=== PATIENT | female | born 1935 | race Caucasian/White ===

== ENCOUNTER 2024-11-27 14:24 | Emergency (ER) | payer BC ==
[2024-11-27 14:30] VITALS: BP 140/56; PULSE 80; RESP 18; TEMP 97.7; BMI 27.3
[2024-11-27] MEDS ORDERED: LIDOCAINE 5% TOPICAL PATCH TP ONE (14:52)
[2024-11-27] MEDS ORDERED: LIDOCAINE 5% TOPICAL PATCH ONE (15:27)
[2024-11-27] MEDS ORDERED: LIDOCAINE PATCH REMOVAL MC ONE (22:00)
== END 2024-11-27 15:30 | disposition home or self-care (01) ==
LOC: JER 14:24
DX: M25.562 Pain in left knee (principal)
CPT/HCPCS: 99283-25